=== PATIENT | male | born 2000 | race Caucasian/White ===

== ENCOUNTER 2021-06-16 13:36 | Emergency (ER) | payer OTHER ==
[2021-06-16 13:40] VITALS: TEMP 97.9
[2021-06-16 14:16] LABS: Basophils % (A) 1 %; Eosinophils # (A) 0.3 k/uL (0-0.7); Eosinophils % (A) 4 %; HCT 45.4 % (39.0-53.0); HGB 16.3 gm/dL (13.0-17.5); Lymphocytes % (A) 46 %; MCH 30.9 pg (25.0-35.0); MCV 85.8 fL (80.0-100.0); Monocytes # (A) 0.4 k/uL (0-1.0); Monocytes % (A) 5 %; Neutrophils # (A) 2.7 k/uL (1.3-7.7); Neutrophils % (A) 42 %; Platelet Count 289 k/uL (150-450); RBC 5.29 m/uL (4.30-5.90); RDW 11.2 % (11.5-15.5); WBC 6.6 k/uL (4.0-11.0)
[2021-06-16 14:24] LABS: ALT 44 U/L (4-49); AST 35 U/L (17-59); African American GFR (CKD) >90 (>60 ml/min/1.73 sqM); Albumin 5.2 g/dL (3.5-5.0); Alkaline Phosphatase 118 U/L (38-126); Anion Gap 12 mmol/L; Blood Urea Nitrogen 19 mg/dL (9-20); Calcium 10.8 mg/dL (8.4-10.2); Carbon Dioxide 24 mmol/L (22-30); Chloride 104 mmol/L (98-107); Glucose 102 mg/dL (74-99); Lipase 78 U/L (23-300); Non-African American GFR(CKD) >90 (>60 ml/min/1.73 sqM); Potassium 4.7 mmol/L (3.5-5.1); Sodium 140 mmol/L (137-145); Total Bilirubin 0.9 mg/dL (0.2-1.3); Total Protein 8.4 g/dL (6.3-8.2)
[2021-06-16 14:32] LABS: INR 0.9 (<1.2); Partial Thromboplastin Time 24.1 sec (22.0-30.0)
--- NOTE | 2021-06-16 15:08 | ED ---
General Adult HPI <Eric Rowe - Last Filed: 06/16/21 16:38> - General Source: patient Mode of arrival: ambulatory Limitations: no limitations <Kiara Higuera - Last Filed: 06/17/21 15:35> - General Chief complaint: Abdominal Pain Stated complaint: ABD pain Time Seen by Provider: 06/16/21 13:43 - History of Present Illness Initial comments: 20-year-old male with no past medical history presents emergency department with reported abdominal pain and bright red blood per rectum. Patient states that he has had some left upper quadrant and right upper quadrant abdominal pain for the past few months however it intensified over the past couple of days. Also reports that he began having bright red blood in his stool earlier this morning. States that he has had some loose stools. Normally has to strain to go however stools are soft. Admits to nausea with some vomiting. Denies hematemesis. No fevers or chills. No previous abdominal surgeries. Denies family history of inflammatory bowel disease. Denies any changes in his urination. States that his dad has a history of FSGS. Denies hematuria. No dizziness, weakness or syncope. No recent travel. Has not eaten any tainted foods. No other alleviating, precipitating or modifying factors (Kiara Higuera) - Related Data Previous Rx's Medication Instructions Recorded Omeprazole 40 mg PO DAILY 24 Days #24 06/16/21 capsule. Allergies Allergy/AdvReac Type Severity Reaction Status Date / Time No Known Allergies Allergy Verified 06/16/21 16:14 Review of Systems ROS Other: All systems not noted in ROS Statement are negative. <Eric Rowe - Last Filed: 06/16/21 16:38> ROS Other: All systems not noted in ROS Statement are negative. <Kiara Higuera - Last Filed: 06/17/21 15:35> ROS Statement: Those systems with pertinent positive or pertinent negative responses have been documented in the HPI. Past Medical History Past Medical History: No Reported History History of Any Multi-Drug Resistant Organisms: None Reported Past Surgical History: No Surgical Hx Reported Past Psychological History: No Psychological Hx Reported Smoking Status: Never smoker Past Alcohol Use History: None Reported Past Drug Use History: Marijuana <Kiara Higuera - Last Filed: 06/17/21 15:35> General Exam Limitations: no limitations General appearance: alert, in no apparent distress Head exam: Present: atraumatic, normocephalic, normal inspection Eye exam: Present: normal appearance, PERRL, EOMI. Absent: scleral icterus, conjunctival injection, periorbital swelling ENT exam: Present: normal exam, mucous membranes moist Neck exam: Present: normal inspection. Absent: tenderness, meningismus, lymphadenopathy Respiratory exam: Present: normal lung sounds bilaterally. Absent: respiratory distress, wheezes, rales, rhonchi, stridor Cardiovascular Exam: Present: regular rate, normal rhythm, normal heart sounds. Absent: systolic murmur, diastolic murmur, rubs, gallop, clicks GI/Abdominal exam: Present: soft, tenderness (ruq, luq tenderness), normal bowel sounds. Absent: distended, guarding, rebound, rigid Rectal exam: Present: heme (+) stool, bloody stool. Absent: hemorrhoids, mass, tenderness Extremities exam: Present: normal inspection, full ROM, normal capillary refill. Absent: tenderness, pedal edema, joint swelling, calf tenderness Back exam: Present: normal inspection Neurological exam: Present: alert, oriented X3, CN II-XII intact Psychiatric exam: Present: normal affect, normal mood Skin exam: Present: warm, dry, intact, normal color. Absent: rash <Kiara Higuera - Last Filed: 06/17/21 15:35> Course Vital Signs 06/16/21 06/16/21 13:38 16:19 Temperature 97.9 F Pulse Rate 74 65 Respiratory 20 18 Rate Blood Pressure 172/77 123/75 O2 Sat by Pulse 98 99 Oximetry Medical Decision Making - Lab Data Result diagrams: 06/16/21 13:55 06/16/21 13:55 <Eric Rowe - Last Filed: 06/16/21 16:38> - Lab Data Result diagrams: 06/16/21 13:55 06/16/21 13:55 <Kiara Higuera - Last Filed: 06/17/21 15:35> - Medical Decision Making Patient care was signed out to me by previous shift physician, Dr. Higuera. The, patient is a 20-year-old male with bright red blood per rectum. He has normal vitals, normal labs. Plan was to follow-up with CT imaging.Computed tomography scan of was reviewed. Radiology reports that there is some wall thickening around the sigmoid colon which could be secondary to nondistention versus mild colitis. Prostate is slightly enlarged with small cyst. Also some bladder wall thickening. Patient is notified of these results. He is reevaluated at bedside at 4:40 PM found to be stable medical condition. States that he has mild epigastric abdominal pain. Denies any rectal pain or lower abdominal pain. He is well-appearing at bedside. Observed in the emergency department for approximately 3 hours with no continued episodes of bright red blood per rectum. Patient is agreeable for discharge. Given that patient has some epigastric symptoms patient was given a prescription for omeprazole. He is given outpatient referral to primary care doctor and GI. Patient told incidental finding seen on CT and that he should follow-up with PCP regarding these especially the prostate cyst. (Eric Rowe) Patient is placed into room 27. A thorough history and physical exam is performed. Rectal exam is performed and does demonstrate a scant amount of pink blood. No external hemorrhoids. No palpable internal hemorrhoids. Laboratory studies were conducted. Hemoglobin 16.3. Occult is positive. Patient does go over for CT. He is currently awaiting results at this time. Will sign the case out to Dr. Rowe. (Kiara Higuera) - Lab Data Lab Results 06/16/21 06/16/21 06/16/21 Range/Units 13:55 13:55 13:55 WBC 6.6 (4.0-11.0) k/uL RBC 5.29 (4.30-5.90) m/uL Hgb 16.3 (13.0-17.5) gm/dL Hct 45.4 (39.0-53.0) % MCV 85.8 (80.0-100.0) fL MCH 30.9 (25.0-35.0) pg MCHC 36.0 (31.0-37.0) g/dL RDW 11.2 L (11.5-15.5) % Plt Count 289 (150-450) k/uL MPV 8.0 Neutrophils % 42 % Lymphocytes % 46 % Monocytes % 5 % Eosinophils % 4 % Basophils % 1 % Neutrophils # 2.7 (1.3-7.7) k/uL Lymphocytes # 3.0 (1.0-4.8) k/uL Monocytes # 0.4 (0-1.0) k/uL Eosinophils # 0.3 (0-0.7) k/uL Basophils # 0.0 (0-0.2) k/uL PT 10.0 (9.0-12.0) sec INR 0.9 (<1.2) APTT 24.1 (22.0-30.0) sec Sodium 140 (137-145) mmol/L Potassium 4.7 (3.5-5.1) mmol/L Chloride 104 (98-107) mmol/L Carbon Dioxide 24 (22-30) mmol/L Anion Gap 12 mmol/L BUN 19 (9-20) mg/dL Creatinine 0.70 (0.66-1.25) mg/dL Est GFR (CKD-EPI)AfAm >90 (>60 ml/min/1.73 sqM) Est GFR (CKD-EPI)NonAf >90 (>60 ml/min/1.73 sqM) Glucose 102 H (74-99) mg/dL Calcium 10.8 H (8.4-10.2) mg/dL Total Bilirubin 0.9 (0.2-1.3) mg/dL AST 35 (17-59) U/L ALT 44 (4-49) U/L Alkaline Phosphatase 118 (38-126) U/L Total Protein 8.4 H (6.3-8.2) g/dL Albumin 5.2 H (3.5-5.0) g/dL Lipase 78 (23-300) U/L Stool Occult Blood (Negative) 06/16/21 Range/Units 13:55 WBC (4.0-11.0) k/uL RBC (4.30-5.90) m/uL Hgb (13.0-17.5) gm/dL Hct (39.0-53.0) % MCV (80.0-100.0) fL MCH (25.0-35.0) pg MCHC (31.0-37.0) g/dL RDW (11.5-15.5) % Plt Count (150-450) k/uL MPV Neutrophils % % Lymphocytes % % Monocytes % % Eosinophils % % Basophils % % Neutrophils # (1.3-7.7) k/uL Lymphocytes # (1.0-4.8) k/uL Monocytes # (0-1.0) k/uL Eosinophils # (0-0.7) k/uL Basophils # (0-0.2) k/uL PT (9.0-12.0) sec INR (<1.2) APTT (22.0-30.0) sec Sodium (137-145) mmol/L Potassium (3.5-5.1) mmol/L Chloride (98-107) mmol/L Carbon Dioxide (22-30) mmol/L Anion Gap mmol/L BUN (9-20) mg/dL Creatinine (0.66-1.25) mg/dL Est GFR (CKD-EPI)AfAm (>60 ml/min/1.73 sqM) Est GFR (CKD-EPI)NonAf (>60 ml/min/1.73 sqM) Glucose (74-99) mg/dL Calcium (8.4-10.2) mg/dL Total Bilirubin (0.2-1.3) mg/dL AST (17-59) U/L ALT (4-49) U/L Alkaline Phosphatase (38-126) U/L Total Protein (6.3-8.2) g/dL Albumin (3.5-5.0) g/dL Lipase (23-300) U/L Stool Occult Blood Positive (Negative) Disposition Is patient prescribed a controlled substance at d/c from ED?: No <Eric Rowe - Last Filed: 06/16/21 16:38> <Kiara Higuera - Last Filed: 06/17/21 15:35> Clinical Impression: Bright red blood per rectum Disposition: HOME SELF-CARE Condition: Fair Instructions (If sedation given, give patient instructions): Rectal Bleeding (ED) Additional Instructions: There was an incidental finding seen on CT of a cyst on your prostate, and some inflammation around your rectum, sigmoid colon and bladder. It is important to follow up with primary care physician regarding these. Prescriptions: Omeprazole 40 mg PO DAILY 24 Days #24 capsule.dr Referrals: Savita Broussard MD [STAFF PHYSICIAN] - 1-2 days Tonny David MD [STAFF PHYSICIAN] - 1-2 days
--- NOTE | 2021-06-16 16:13 | CT ---
EXAMINATION TYPE: CT abdomen pelvis w con DATE OF EXAM: 06/16/2021 COMPARISON: NONE HISTORY: 20-year-old male Upper abdominal pain with blood in stools. TECHNIQUE: Contiguous axial scanning of the abdomen and pelvis following administration of 100 ml Iso dawood 300 IV contrast. Delayed images through the kidneys and coronal/sagittal reconstructions perform ed. CT DLP: 650 mGycm Automated exposure control for dose reduction was used. FINDINGS: LUNG BASES: No significant abnormality is appreciated. LIVER/GB: No significant abnormality is appreciated. PANCREAS: No significant abnormality is seen. SPLEEN: No significant abnormality is seen. ADRENALS: No significant abnormality is seen. KIDNEYS: No significant abnormality is seen. LYMPH NODES: Scattered nonenlarged and borderline size mesenteric lymph nodes scattered throughout me asuring up to 7 mm, for example, coronal image 42 and 43. BOWEL: No dilated small bowel, free fluid, or air. Normal appendix. Scattered mild stool. On coronal series, there seems to be mild circumferential wall thickening of the sigmoid colon and rectum, for example, refer to coronal images 38, 58, and 71. PELVIS: Mild circumferential bladder wall thickening. Prostate gland measures mildly enlarged at 4.7 cm. There is a cystic structure along the posterior midline measuring 1.4 cm. No abnormal fluid colle ctions pelvis or pelvic lymphadenopathy. BONES: No osseous destructive process. IMPRESSION: 1. MILD CIRCUMFERENTIAL WALL THICKENING OF THE SIGMOID COLON AND RECTUM MAY BE DUE TO NONDISTENTION V ERSUS NONSPECIFIC MILD COLITIS. CLINICALLY CORRELATE. 2. MILD PROSTATOMEGALY MEASURING 4.7 CM WIDE. IN ADDITION, THERE IS A 1.4 CM CYST ALONG THE POSTERIOR MIDLINE OF THE PROSTATE GLAND, POSSIBLE PROSTATIC UTRICLE CYST. UROLOGY FOLLOW-UP CAN BE PERFORMED. 3. MILD CIRCUMFERENTIAL BLADDER WALL THICKENING. CORRELATE TO EXCLUDE CYSTITIS.
[2021-06-16 16:20] VITALS: BP 123/75; PULSE 65; RESP 18
== END 2021-06-16 16:57 | disposition home or self-care (01) ==
LOC: EC 13:36
DX: K62.5 Hemorrhage of anus and rectum (principal); R10.13 Epigastric pain; R10.11 Right upper quadrant pain; R10.12 Left upper quadrant pain
CPT/HCPCS: 99284; 36415; 80053; 83690; 85025; 85610; 85730; 82272; 74177; Q9967